=== PATIENT | male | born 1940 | race Caucasian/White ===

== ENCOUNTER 2022-05-10 10:41 | Emergency (ER) | payer MEDICARE, OTHER ==
[2022-05-10 13:10] LABS: BASOPHIL 0.4 % (0-2); EOSINOPHIL 1.8 % (0-7); HCT 43.5 % (42.0-52.0); HGB 14.8 g/dl (13.2-18.0); LYMPHOCYTE 20.9 % (15-48); MCH 30.5 pg (25.0-31.0); MCV 89.5 fL (78.0-100.0); MONOCYTE 5.6 % (0-12); MPV 10.5 fL (6.0-9.5); NEUTROPHIL 71.2 % (41-80); NRBC 0.3; PLT 172 K/uL (150-400); RBC 4.86 M/uL (4.70-6.00); RDW 12.8 % (11.5-14.0); WBC 6.8 K/uL (4.0-10.5)
[2022-05-10 13:14] LABS: ALBUMIN 4.1 g/dL (3.4-5.0); BILIRUBIN - TOTAL 1.9 mg/dL (0.2-1.0); BUN/CREAT RATIO (CALC) 19.4 RATIO; CREATININE 0.72 mg/dL (0.67-1.17); GLOBULIN (CALCULATION) 2.9 g/dL; POTASSIUM 4.5 mmol/L (3.5-5.1)
[2022-05-13] MEDS ORDERED: MIRALAX17 GM PO (14:21)
[2022-05-13] MEDS ORDERED: ATORVASTATIN CA80 MG PO (14:21)
[2022-05-13] MEDS ORDERED: LOPRESSOR50 MG PO (14:21)
[2022-05-13] MEDS ORDERED: LOVAZA1 GM PO (14:22)
== END 2022-05-10 15:27 | disposition home or self-care (01) ==
LOC: FER 10:41
PROVIDERS: Emergency Medicine
DX: R53.1 Weakness (principal); I10 Essential (primary) hypertension; Z88.5 Allergy status to narcotic agent
CPT/HCPCS: 36415; 70450; 71046; 80053; 84443; 84484; 85025; 93005